=== PATIENT | female | born 1970 | race Asian ===

== ENCOUNTER → 2016-12-22 | Outpatient (CLI) | payer BC ==
--- NOTE | 2016-12-22 21:23 | RADRPT ---
PROCEDURE: XR right elbow. CLINICAL INDICATION: Trauma. Right elbow pain. TECHNIQUE: Three views. Frontal, lateral, and oblique. COMPARISON: No prior study is available for comparison. FINDINGS: There is no fracture or dislocation. The soft tissues are normal. Articular surfaces are intact. There is no lytic or blastic lesion. There is no radiopaque foreign body. IMPRESSION: 1. Unremarkable images of the right elbow. RPTAT: QQ .Jhony Coyne MD, MD Date Time Electronically viewed and signed by .Jhony Coyne MD, on 12/22/2016 21:23 .R/
== END | disposition home or self-care (01) ==
LOC: LAB 13:59
PROVIDERS: ATTEND Internal Medicine
DX: S42.401A Unspecified fracture of lower end of right humerus, initial encounter for closed fracture (principal); X58.XXXA Exposure to other specified factors, initial encounter

== ENCOUNTER → 2017-02-06 | Outpatient (CLI) | payer BC | END | disposition home or self-care (01) | LOC: LAB 12:50 | PROVIDERS: ATTEND Internal Medicine | DX: M86.9 Osteomyelitis, unspecified (principal) | CPT/HCPCS: 80048; 85025; 85651; 86140 ==

== ENCOUNTER → 2017-08-16 | Outpatient (CLI) | END | disposition home or self-care (01) ==